=== PATIENT | female | born 1950 | race Caucasian/White ===

== ENCOUNTER → 2017-12-01 | Outpatient (CLI) | payer MEDICARE, BC | END | disposition home or self-care (01) | LOC: CDC 11:51 | DX: Z01.810 Encounter for preprocedural cardiovascular examination (principal); C50.112 Malignant neoplasm of central portion of left female breast; I45.10 Unspecified right bundle-branch block; R94.31 Abnormal electrocardiogram [ECG] [EKG] | CPT/HCPCS: 93000 ==

== ENCOUNTER 2017-12-27 05:23 | Day surgery (SDC) | payer OTHER, BC ==
[~2017-12-27] VITALS: Ht 160 cm; Wt 90.7 kg
[~2017-12-27 05:23] MED LIST: ACCUPRIL40 MG PO; ACID CONTROL150 MG PO; ACID CONTROLLER20 MG PO; ADULT ASPIRIN R81 MG PO; ARIMIDEX1 MG PO; CLARITIN10 M3 PO; EPIPEN ADU0.3 MG/0.3 IM; FISH OIL 1,0001 EAC7 PO; LABETALOL HCL100 MG PO; MELATONIN10 M2 PO; PRESERVISION T1 EACH PO; SYSTANE 0.3-0.1 EACH BOTH EYES; TYLENOL EXTRA500 MG PO; TYLENOL PM EX-1 EACH PO; VITAMIN B-6100 MG PO; VITAMIN D5000 UNI1 PO; ZETIA10 MG PO; ZITHROMAX250 MG PO
[2017-12-27 06:08] VITALS: BP 179/80
[2017-12-27] MEDS ORDERED: HYDROCODON-ACE1 EAC7 PO (11:43)
[2017-12-27 12:27] VITALS: BP 148/76
[2017-12-27 13:30] VITALS: BP 143/70
== END 2017-12-27 13:45 | disposition home or self-care (01) ==
LOC: SDC 05:23 → GEN 05:23 → SDC 07:00 → NUC 07:00 → SDC 13:45
DX: C50.112 Malignant neoplasm of central portion of left female breast (principal); Z17.0 Estrogen receptor positive status [ER+]; I10 Essential (primary) hypertension; I45.4 Nonspecific intraventricular block; E78.5 Hyperlipidemia, unspecified; Z90.710 Acquired absence of both cervix and uterus; Z80.3 Family history of malignant neoplasm of breast; Z80.0 Family history of malignant neoplasm of digestive organs; Z82.49 Family history of ischemic heart disease and other diseases of the circulatory system; Z88.1 Allergy status to other antibiotic agents; Z88.0 Allergy status to penicillin; Z88.2 Allergy status to sulfonamides
CPT/HCPCS: 78195; 78999; A9541; J0131; J1100; J1170; J2405; Q0175; S0020

== ENCOUNTER 2018-01-31 05:31 | Day surgery (SDC) | payer OTHER, BC ==
[~2018-01-31] VITALS: Ht 160 cm; Wt 90.2 kg
[~2018-01-31 05:31] MED LIST changes: +HYDROCODON-ACE1 EAC7 PO
[2018-01-31 06:54] VITALS: BP 145/79
[2018-01-31 13:20] VITALS: BP 164/87
[2018-01-31 16:30] VITALS: BP 166/79
[2018-01-31 19:35] VITALS: BP 126/64
[2018-01-31 23:35] VITALS: BP 130/64
[2018-02-01 03:20] VITALS: BP 132/66
[2018-02-01 05:40] LABS: HEMATOCRIT 36.9 % (36.0-46.0); HEMOGLOBIN 12.4 G/DL (11.9-15.5); MCH 32.3 PG (29.0-34.0); MCHC 33.6 G/DL (30.0-36.0); MCV 96.1 FL (83-99); PLATELET COUNT 164 K/uL (156-360); RBC DIS.WIDTH-CV 12.5 % (11.8-14.6); RBC DIS.WIDTH-SD 44.4 % (39-53); RED BLOOD COUNT 3.84 M/uL (3.80-5.20); WHITE BLOOD COUNT 10.1 K/uL (4.1-10.2)
[2018-02-01 07:50] VITALS: BP 131/71
[2018-02-01 11:35] VITALS: BP 129/59
== END 2018-02-01 15:22 | disposition home or self-care (01) ==
LOC: SDC 05:31 → 2SOUTH 11:15 → 2EAST 11:15 → 2SOUTH 11:15 → SDC 11:22 → ENRESERV 11:50 → SDC 11:51 → ENRESERV 12:17 → 2EAST 13:25
PROVIDERS: Surgery
DX: C50.112 Malignant neoplasm of central portion of left female breast (principal); Z17.0 Estrogen receptor positive status [ER+]; C77.3 Secondary and unspecified malignant neoplasm of axilla and upper limb lymph nodes; E78.5 Hyperlipidemia, unspecified; I10 Essential (primary) hypertension; K21.9 Gastro-esophageal reflux disease without esophagitis; I45.10 Unspecified right bundle-branch block; Z80.3 Family history of malignant neoplasm of breast; Z79.82 Long term (current) use of aspirin; Z80.0 Family history of malignant neoplasm of digestive organs; Z88.2 Allergy status to sulfonamides; Z88.0 Allergy status to penicillin
CPT/HCPCS: 85027; 88309; 88342 TC; 94799; G0378; J0131; J1170; J2250; J2405; J3370; J3480; S0020; S0030

== ENCOUNTER → 2018-03-03 | Outpatient (CLI) | payer OTHER, BC ==
[~2018-03-03] VITALS: Ht 160 cm; Wt 91.0 kg
[~2018-03-03] MED LIST changes: +ATIVAN0.5 MG PO
[2018-03-03 20:03] VITALS: BP 135/64
[2018-03-03 21:31] LABS: HEMATOCRIT 35.1 % (36.0-46.0); HEMOGLOBIN 12.2 G/DL (11.9-15.5); MCH 32.7 PG (29.0-34.0); MCHC 34.8 G/DL (30.0-36.0); MCV 94.1 FL (83-99); PLATELET COUNT 79 K/uL (156-360); RBC DIS.WIDTH-CV 12.6 % (11.8-14.6); RBC DIS.WIDTH-SD 43.8 % (39-53); RED BLOOD COUNT 3.73 M/uL (3.80-5.20)
[2018-03-03 21:32] LABS: WHITE BLOOD COUNT 1.8 K/uL (4.1-10.2)
[2018-03-03 21:48] LABS: ALBUMIN 3.4 G/DL (3.2-4.8); ALKALINE PHOSPHATASE 71 IU/L (3-129); ALT (GPT) 16 IU/L (3-49); AST (GOT) 12 IU/L (2-34); CHLORIDE 104 MEQ/L (99-109); CREATININE 0.7 MG/DL (0.6-1.3); GFR ESTIMATE (CALCULATED) > 59 mL/min/; GLUCOSE 115 mg/dL (70-99); POTASSIUM 3.7 MEQ/L (3.7-5.4); SODIUM 136 MEQ/L (136-147); TOTAL BILIRUBIN 1.1 MG/DL (0.0-1.0); TOTAL PROTEIN 5.1 G/DL (6.4-8.3); UREA NITROGEN (BUN) 21 mg/dL (9-23)
[2018-03-03 23:03] LABS: ABS NEUTROPHIL COUNT 0.9; ANISOCYTOSIS 1+; ATYPICAL LYMPHOCYTE 11.1 %; BAND NEUTROPHILS 11.1 % (0-8.0); EOSINOPHIL ABS CT 0.1; EOSINOPHILS 7.4 % (0-5.0); LYMPHOCYTES 29.7 % (15.0-45.0); MONOCYTES 0.9 % (0-9.0); PLAT.SUFFICIENCY DECREASED; SEG.NEUTROPHILS 39.8 % (46.0-76.0)
== END | disposition home or self-care (01) ==
LOC: IVINF 19:30
PROVIDERS: Internal Medicine
DX: E86.0 Dehydration (principal)
CPT/HCPCS: 80053; 85025; 85025 91; 85027; 96365; 96367; J7030